=== PATIENT | female | born 1985 | race Caucasian/White ===

== ENCOUNTER 2018-01-12 03:58 | Emergency (ER) | payer OTHER ==
[2018-01-12 04:28] VITALS: TEMP 97.8
[2018-01-12 04:44] VITALS: RESP 16; O2SAT 100
[2018-01-12 04:57] LABS: BASO % 0.5 % (0.0-2.0); EOS # 0.5 K/uL (0.0-0.7); EOS % 4.8 % (0.0-4.0); HEMOGLOBIN 14.4 g/dL (11.0-16.0); LYMPH # 2.8 K/uL (1.0-4.3); LYMPH % 27.9 % (20.0-40.0); MEAN CELL VOLUME 84.7 fL (81.0-99.0); MEAN CORPUSCULAR HEMOGLOBIN 28.8 pg (27.0-31.0); MEAN PLATELET VOLUME 7.6 fL (7.2-11.7); MONO # 0.7 K/uL (0.0-0.8); MONO % 7.3 % (0.0-10.0); NEUT % 59.5 % (50.0-75.0); NRBC % 0.1 % (0.0-2.0); RBC 5.02 Mil/uL (3.80-5.20); RED CELL DISTRIBUTION WIDTH 14.4 % (11.5-14.5)
[2018-01-12] MEDS ORDERED: Lidocaine 5% Patch TD STA (05:02)
[2018-01-12 05:09] LABS: SQUAMOUS EPITHIAL 1 /hpf (0-5); URINE BACTERIA RARE (<OCC); URINE BILIRUBIN NEGATIVE (NEGATIVE); URINE BLOOD 3+ (NEGATIVE); URINE CLARITY Clear (Clear); URINE COLOR Straw (YELLOW); URINE GLUCOSE (UA) NORMAL (Normal); URINE LEUKOCYTE ESTERASE 3+ Leu/uL (Negative); URINE PROTEIN NEGATIVE (NEGATIVE); URINE UROBILINOGEN NORMAL mg/dL (0.2-1.0)
[2018-01-12] MEDS ORDERED: Lidocaine 5% Patch TD ONE (05:09)
[2018-01-12 05:14] LABS: ALB/GLOB RATIO 1.2 (1.0-2.1); ALBUMIN 4.1 g/dL (3.5-5.0); ALT/SGPT 29 U/L (9-52); AST/SGOT 31 U/L (14-36); BLOOD UREA NITROGEN 13 mg/dL (7-17); CALCIUM 9.5 mg/dl (8.6-10.4); GFR NON-AFRICAN AMERICAN > 60
--- NOTE | 2018-01-12 05:15 | C.PDOC ---
History Of Present Illness 32 year old female, 1 week post-, with a history of gestational diabetes (now off insulin) presents to the emergency department complaining of left-sided neck and shoulder pain for the last two days. She denies numbness or tingling, headache, blurry vision, and abdominal pain. Patient's PMD prescribed Tylenol and a muscle relaxer with no relief. Patient is not . Patient's baby is in the NICU due to being born three weeks premature. Time Seen by Provider: 01/12/18 04:25 Chief Complaint (Nursing): Medical Clearance History Per: Patient History/Exam Limitations: no limitations Onset/Duration Of Symptoms: Other (one week) Current Symptoms Are (Timing): Still Present Reports Recently: Treated By A Physician Past Medical History Reviewed: Historical Data, Nursing Documentation, Vital Signs Vital Signs: Last Vital Signs Temp 97.8 F 01/12/18 04:00 Pulse 85 01/12/18 04:43 Resp 16 01/12/18 04:43 BP 145/101 H 01/12/18 04:43 Pulse Ox 100 01/12/18 04:43 - Medical History PMH: Hiatal Hernia Surgical History: No Surg Hx Family History: States: No Known Family Hx - Social History Hx Alcohol Use: No Hx Substance Use: No - Immunization History Hx Tetanus Toxoid Vaccination: No Hx Influenza Vaccination: Yes Hx Pneumococcal Vaccination: No Review Of Systems Eyes: Negative for: Vision Change Cardiovascular: Negative for: Chest Pain Respiratory: Negative for: Cough, Shortness of Breath Gastrointestinal: Negative for: Vomiting, Abdominal Pain Musculoskeletal: Positive for: Neck Pain, Shoulder Pain, Other (no leg swelling) Neurological: Negative for: Weakness, Numbness, Headache, Dizziness Physical Exam - Physical Exam Appears: Non-toxic, In Acute Distress (mildly uncomfortable) Skin: Warm, Dry Head: Atraumatic, Normacephalic Eye(s): bilateral: Normal Inspection, PERRL, EOMI Oral Mucosa: Moist Neck: No Midline Cervical Tenderness, Paracervical Tenderness (left-sided paracervical and left trapezius tenderness with muscle spasm palpated.), Supple Chest: Symmetrical, No Tenderness Cardiovascular: Rhythm Regular, No Murmur Respiratory: No Decreased Breath Sounds, No Rales, No Rhonchi, No Wheezing Gastrointestinal/Abdominal: Bowel Sounds, Soft, No Tenderness, No Distention, No Guarding Back: Normal Inspection, No CVA Tenderness, No Vertebral Tenderness Extremity: Normal ROM, No Pedal Edema Neurological/Psych: Oriented x3, Normal Speech, Normal Cognition, Normal Cranial Nerves, Normal Motor, Normal Sensation ED Course And Treatment - Laboratory Results Result Diagrams: 01/12/18 04:54 01/12/18 04:54 O2 Sat by Pulse Oximetry: 100 (RA) Pulse Ox Interpretation: Normal Medical Decision Making Medical Decision Making: Pt hypertensive on triage. No hx pre-eclampsia. Blood pressure repeated several times with similarly elevated results. Labwork ordered and will consult LACING OPERATOR. Will give patient lidoderm patch and Toradol for pain. 05 bp now 145/91, labs normal. will call international manager for discussion. pt reports pain decreased. [address] Lancaster from international manager. pt with elevated bp, normal labs, no headache. no leg swelling and no abdominal pain; unlikely to be eclampsia. pt advised to f/u auger machine offbearer on sunday and have blood pressure checked. will tx for uti. discussed with patient that if she develops headache. leg swelling or abdominal pin, she needs to return to the ed. patient and understand. Disposition Counseled Patient/Family Regarding: Studies Performed, Diagnosis, Need For Followup, Rx Given - Disposition Disposition: HOME/ ROUTINE Disposition Time: 05:44 Condition: IMPROVED Additional Instructions: Take ibuprofen as prescribed for pain in neck. Continue muscle relaxants from your auger machine offbearer. Take patch off in 12 hours; do not apply another patch before 12 hours. Take antibiotic until completed. Follow up with Dr Zhou in next 1-2 days, have blood pressure re-checked and bring lab work with you. . Return to ER for any headache, abdominal pain, swelling to legs or other concerns. Prescriptions: Ibuprofen [Motrin] 600 mg PO TID #30 tab Lidocaine 5% [Lidoderm] 1 ea TD DAILY #6 patch Nitrofurantoin Macrocrystals [Macrobid] 100 mg PO BID #14 cap Instructions: High Blood Pressure (DC), Urinary Tract Infection, Adult (DC), Muscle Spasms (DC) Forms: [facility] (Bhutanese), General Discharge Instructions - Clinical Impression Clinical Impression: Trapezius muscle spasm, Elevated blood pressure reading, UTI (urinary tract infection) - PA / BARREL RAISER / Resident Statement MD/DO has reviewed & agrees with the documentation as recorded. - Scribe Statement The provider has reviewed the documentation as recorded by the Scribe (Sravan Pan) All medical record entries made by the Scribe were at my direction and personally dictated by me. I have reviewed the chart and agree that the record accurately reflects my personal performance of the history, physical exam, medical decision making, and the department course for this patient. I have also personally directed, reviewed, and agree with the discharge instructions and disposition.
[2018-01-12 05:59] VITALS: BP 155/88; PULSE 76
== END 2018-01-12 05:58 | disposition home or self-care (01) ==
LOC: C.ER 03:58
DX: M62.838 Other muscle spasm (principal); R03.0 Elevated blood-pressure reading, without diagnosis of hypertension; N39.0 Urinary tract infection, site not specified
CPT/HCPCS: 80053; 81001; 82948; 85025; 94770; 96372; 99284; J1885